=== PATIENT | female | born 1980 | race Caucasian/White ===

== ENCOUNTER 2018-10-15 22:34 | Emergency (ER) | payer MEDICAID ==
--- NOTE | 2018-10-15 22:47 | Emergency Department Record ---
History of Present Illness - General Chief Complaint: Chest Pain Stated Complaint: CHEST PAIN Time Seen by Provider: 10/15/18 22:35 Source: Patient Mode of Arrival: Ambulatory Limitations: No limitations - History of Present Illness Initial Comments: 38 yo female presents to ED for evaluation of shortness of breath and chest discomfort symptoms intermittently for the past several weeks. Patient reports that her symptoms worsen with exertion, reports [place] today she felt out of breath and reports pain that has been present for the past 7 hours. Patient does report a history of asthma, denies wheezing, coughing, fevers, or recent illness. Patient denies history of DVT or lower extremity swelling symptoms. MD Complaint: Chest pain Onset/Timin -: Week(s) Onset: During exertion Pain Location: Substernal Pain Radiation: None Severity: Moderate Quality: Aching Consistency: Constant Improves With: Nothing Worsens With: Exertion Treatments Prior to Arrival: None - Related Data On Oral Contraceptives: No Allergies Allergy/AdvReac Type Severity Reaction Status Date / Time metoclopramide HCl Allergy Unverified 09/13/18 14:01 [From Reglan] promethazine Allergy Unverified 09/13/18 14:01 Sulfa (Sulfonamide Allergy Unverified 09/13/18 14:01 Antibiotics) Review of Systems Constitutional: Denies: Chills, Fever, Malaise, Night sweats Eyes: Denies: Eye discharge, Eye pain ENT: Denies: Congestion, Ear pain, Epistaxis Respiratory: Denies: Cough, Dyspnea Cardiovascular: Reports: Chest pain, Dyspnea on exertion. Denies: Edema Endocrine: Denies: Fatigue, Heat or cold intolerance Gastrointestinal: Denies: Abdominal pain, Nausea, Vomiting Genitourinary: Denies: Incontinence, Retention Musculoskeletal: Denies: Arthralgia, Back pain Skin: Denies: Bruising, Change in color Neurological: Denies: Abnormal gait, Confusion, Headache, Seizure Psychiatric: Denies: Anxiety Hematological/Lymphatic: Denies: Anemia, Blood Clots Physical Exam - General General Appearance: Alert, Oriented x3, Cooperative, No acute distress Limitations: No limitations - Head Head exam: Atraumatic, Normocephalic, Normal inspection Head exam detail: negative: Abrasion, Contusion, Sánchez's sign, General tenderness, Hematoma, Laceration - Eye Eye exam: Normal appearance. negative: Conjunctival injection, Periorbital swelling, Periorbital tenderness, Scleral icterus - ENT Ear exam: negative: Auricular hematoma, Auricular trauma Nasal Exam: negative: Active bleeding, Discharge, Dried blood, Foreign body Mouth exam: negative: Drooling, Laceration, Muffled voice, Tongue elevation - Neck Neck exam: Normal inspection. negative: Meningismus, Tenderness - Respiratory Respiratory exam: Normal lung sounds bilaterally. negative: Rales, Respiratory distress, Rhonchi, Stridor - Cardiovascular Cardiovascular Exam: Normal rhythm, Normal heart sounds, Tachycardia - GI/Abdominal GI/Abdominal exam: Soft. negative: Rebound, Rigid, Tenderness - Rectal Rectal exam: Deferred - exam: Deferred - Extremities Extremities exam: Normal inspection. negative: Calf tenderness, Pedal edema, Tenderness - Back Back exam: Denies: CVA tenderness (R), CVA tenderness (L) - Neurological Neurological exam: Alert, Normal gait, Oriented X3 - Psychiatric Psychiatric exam: Normal affect, Normal mood - Skin Skin exam: Normal color. negative: Abrasion Type of lesion: negative: abrasion Course - Reevaluation(s) Reevaluation #1: 10/15/18 22:48 EKG: Sinus tachycardia 104 Normal axis, normal intervals No acute ST-T wave changes on examination. Reevaluation #2: 10/15/18 23:25 laboratory studies were reviewed, Hgb 6.7. Type and cross ordered. Labs are otherwise grossly unremarkable for an acute process. Reevaluation #3: 10/15/18 23:42 Hgb was confirmed to be 6.7 following repeat level. I did discuss transfusion with the patient, reports a history of being raised as Islam, declines transfusion at this time. Will discuss transfer for further evaluation. Reevaluation #4: 10/16/18 00:21 Following discussion with the patient, she is willing to be transferred for further evaluation. Reevaluation #5: 10/16/18 00:41 Case was discussed with Dr. Galvez, will accept patient for transfer and further evaluation. Medical Decision Making - Lab Data Result diagrams: 10/15/18 22:40 10/15/18 22:40 Disposition Disposition: Transfer Clinical Impression: Severe anemia Chest pain Qualifiers: Chest pain type: unspecified Qualified Code(s): R07.9 - Chest pain, unspecified Disposition: Acute Care Hospital Transfer Transfer To: [facility] Reason For Transfer: UGI Bleed Accepting Physician: Lenny Time Discussed w/Accepting Physician: 00:43 Condition: (2) Stable Forms: Patient Portal Access Time of Disposition: 23:26 Quality - Quality Measures Quality Measures: N/A - Blood Pressure Screening Does Patient Have Any of the Following: No Blood Pressure Classification: Normal BP Reading Systolic Measurement: 118 Diastolic Measurement: 66 Screening for High Blood Pressure: < Normal BP, F/U Not Required > [G8783] Pre-Hypertensive Follow-up Interventions: Referral to alternative/primary care provider.
[2018-10-15 22:53] LABS: BASO % 0.6 % (0-6); EOS % 7.6 % (0-6); HEMATOCRIT 24.3 % (35.0-47.0); LYMPH % 16.6 % (16-45); MEAN CELL VOLUME 67.5 fl (81-97); MEAN CORPUSCULAR HEMOGLOBIN 18.6 pg (27-33); MEAN CORPUSCULAR HGB CONC 27.6 g/dl (32-36); MEAN PLATELET VOLUME 10.4 fl (7.4-10.4); MONO % 6.2 % (0-9); PLATELET COUNT 490 K/uL (130-400); WHITE BLOOD COUNT W/O DIFF 11.5 K/uL (4.2-12.2)
[2018-10-15 23:06] LABS: BILIRUBIN,TOTAL < 0.20 mg/dL (0.2-1.0); BLOOD UREA NITROGEN 12 mg/dL (6-20); CREATININE 0.6 mg/dL (0.5-0.9); EST GLOMERULAR FILTRATION RATE > 60 mL/min; TOTAL PROTEIN 6.8 g/dL (6.6-8.7)
[2018-10-15 23:08] LABS: GLUCOSE,RANDOM 116 mg/dL (74-109)
[2018-10-15 23:11] LABS: ALB/GLOB RATIO 1.5 (1.1-1.8); ALBUMIN 4.1 g/dL (4.0-5.0); ALKALINE PHOSPHATASE 62 U/L (35-104); ALT/SGPT 18 U/L (<33); AST/SGOT 24 U/L (10.0-35.0)
[2018-10-15 23:48] LABS: ABO GROUP O; ANTIBODY SCREEN NEGATIVE (NEGATIVE); RH TYPE POSITIVE
[2018-10-16] MEDS ORDERED: FAMOTIDINE IV 20 MG/2 ML VIAL IVP ONE (00:43)
[2018-10-16] MEDS ORDERED: PANTOPRAZOLE SODIUM IV 40 MG VIAL IVP ONE (00:46)
[2018-10-16 07:05] LABS: HEMOGLOBIN 6.7 gm/dl (11.6-16.0)
== END 2018-10-16 01:54 | disposition short-term general hospital (02) ==
LOC: ER 22:34
DX: D64.9 Anemia, unspecified (principal); R07.2 Precordial pain; R06.02 Shortness of breath
CPT/HCPCS: 80053; 84484; 85025; 85379; 86850; 86900; 86901; 93005; 93010; 96374; 99285; C9113

== ENCOUNTER 2018-12-15 13:35 | Emergency (ER) | payer MEDICAID ==
--- NOTE | 2018-12-15 13:55 | Emergency Department Record ---
History of Present Illness - General Chief complaint: ENT Stated complaint: SORE THROAT Time Seen by Provider: 12/15/18 13:55 Source: Patient Mode of Arrival: Ambulatory Limitations: No limitations - History of Present Illness Initial comments: The patient is here due to having a ST for the last 4 days. She states she feels her throat is swollen and she has been very fatigued. There is no hx of cough, fever, CP, AP or dysuria. She does have a hx of anemia and would like it checked. MD complaint: Sore throat Onset/Timin -: Days(s) Location: Throat Severity: Mild Severity scale (1-10): 2 Quality: Aching Improves with: None Associated Symptoms: Sore throat - Related Data Home Medications Medication Instructions Recorded Confirmed Last Taken Cyclobenzaprine HCl [Flexeril] 5 mg PO TID 12/15/18 12/15/18 1 Day Ago ~12/14/18 Gabapentin [Neurontin] 100 mg PO 12/15/18 12/15/18 Pantoprazole Sodium [Protonix] 40 mg PO BID 12/15/18 12/15/18 12/15/18 Previous Rx's Medication Instructions Recorded Prednisone [Prednisone 20Mg] 40 mg PO DAILY #8 tab 12/15/18 Allergies Allergy/AdvReac Type Severity Reaction Status Date / Time metoclopramide HCl Allergy ALTERED Unverified 12/15/18 13:51 [From Reglan] MENTAL STATUS promethazine Allergy ALTERED Unverified 12/15/18 13:51 MENTAL STATUS Sulfa (Sulfonamide Allergy HIVES Unverified 12/15/18 13:51 Antibiotics) Travel Screening - Travel/Exposure Within Last 30 Days Have you traveled within the last 30 days?: No - Travel Symptoms Symptom Screening: Joint & Muscle Aches, Weakness, Fatigue, Vomiting, Lack of Appetite Review of Systems Constitutional: Reports: Malaise. Denies: Chills, Fever Eyes: Denies: Eye discharge ENT: Reports: Throat pain. Denies: Congestion Respiratory: Denies: Cough, Dyspnea Past Medical History - SOCIAL HISTORY Smoking Status: Former smoker Alcohol Use: Occasional Alcohol Use Comment: daily Drug Use: None - RESPIRATORY Hx Respiratory Disorders: Yes Hx Asthma: Yes - CARDIOVASCULAR Hx Cardio Disorders: Yes Hx Hypotension: Yes - NEURO Hx Neuro Disorders: Yes Hx Headaches: Yes (hx of Migraines) - GI Hx GI Disorders: Yes Hx Reflux: Yes Hx Ulcer: Yes Comment:: Chronic Diarrhea - Hx Genitourinary Disorders: No - ENDOCRINE Hx Endocrine Disorders: No - MUSCULOSKELETAL Hx Musculoskeletal Disorders: Yes Hx Fibromyalgia: Yes - PSYCH Hx Psych Problems: Yes Hx Anxiety: Yes Hx Depression: Yes - HEMATOLOGY/ONCOLOGY Hx Hematology/Oncology Disorders: Yes Hx Anemia: Yes Family Medical History Any Significant Family History?: Yes Hx Cancer: Mother, Grandparents *Diabetes Comment: Uncle Hx Heart Disease: Grandparents Hx Resp Disorders: Father Physical Exam - General General Appearance: Alert, Oriented x3, Cooperative, No acute distress - Head Head exam: Atraumatic, Normocephalic, Normal inspection - Eye Eye exam: Normal appearance, PERRL, EOMI - ENT ENT exam: TM's normal bilaterally Throat exam: Tonsillar erythema. negative: Normal inspection, Tonsillomegaly, Tonsillar exudate - Neck Neck exam: Normal inspection, Full ROM. negative: Lymphadenopathy, Meningismus , Tenderness - Respiratory Respiratory exam: Normal lung sounds bilaterally. negative: Respiratory distress - Cardiovascular Cardiovascular Exam: Regular rate, Normal rhythm, Normal heart sounds - GI/Abdominal GI/Abdominal exam: Soft, Normal bowel sounds. negative: Rebound, Rigid, Tenderness - Extremities Extremities exam: Normal inspection, Full ROM, Normal capillary refill. negative: Tenderness - Neurological Neurological exam: Alert, Normal gait. negative: Abnormal gait, Motor sensory deficit - Skin Skin exam: negative: Rash Course Vital Signs 12/15/18 13:38 Temperature 98.4 F Pulse Rate 112 H Respiratory 18 Rate Blood Pressure 149/108 Pulse Ox 94 L - Reevaluation(s) Reevaluation #1: The patient is doing very well at this time. She is drinking well and just finished a 12 oz bottle of water. The patient denies any cough, nausea, vomiting or SOB. I did explain the lab tests were neg for Strep and [place] and anemia but did demonstrate elevated liver enzymes. She is to see her PCP next week for recheck and have the elevated liver tests evaluated further. 12/15/18 14:49 Medical Decision Making - Data Complexity MDM Data: Labs Ordered and/or Reviewed - Lab Data Result diagrams: 12/15/18 14:00 12/15/18 14:00 Disposition Disposition: Discharge Clinical Impression: Pharyngitis Qualifiers: Pharyngitis/tonsillitis etiology: other specified organisms Qualified Code(s): J02.8 - Acute pharyngitis due to other specified organisms Disposition: Home, Self-Care Condition: (2) Stable Instructions: Viral Syndrome (ED) Additional Instructions: Please continue your regular medicines and add the short course of Prednisone for 4 days. Please see your family doctor next week for recheck and to have your elevated liver enzymes evaluated further. Return to the ER for any worsening symptoms, pain, fever, or vomiting. Prescriptions: Prednisone [Prednisone 20Mg] 40 mg PO DAILY #8 tab Forms: Patient Portal Access Time of Disposition: 14:55 Quality - Quality Measures Quality Measures: N/A - Blood Pressure Screening View Details: Yes Does Patient Have Any of the Following: No Blood Pressure Classification: Hypertensive Reading Systolic Measurement: 149 Diastolic Measurement: 108 Screening for High Blood Pressure: < First Hypertensive BP, F/U Documented > [ G8950] First Hypertensive Follow-up Interventions: Referral to alternative/primary care provider.
[2018-12-15 14:19] LABS: HEMATOCRIT 39.8 % (35.0-47.0); MEAN CELL VOLUME 80.1 fl (81-97); MEAN CORPUSCULAR HEMOGLOBIN 24.1 pg (27-33); MEAN CORPUSCULAR HGB CONC 30.2 g/dl (32-36); MEAN PLATELET VOLUME 9.7 fl (7.4-10.4); PLATELET COUNT 179 K/uL (130-400); RED BLOOD COUNT 4.97 M/uL (3.80-5.40); RED CELL DISTRIBUTION WIDTH 24.7 % (11.5-14.5)
[2018-12-15 14:29] LABS: ANISOCYTOSIS 1+; PLATELET ESTIMATE NORMAL (NORMAL)
[2018-12-15 14:30] LABS: MONOSCREEN NEGATIVE (NEGATIVE)
[2018-12-15 14:33] LABS: BLOOD UREA NITROGEN 15 mg/dL (6-20); CREATININE 0.4 mg/dL (0.5-0.9); EST GLOMERULAR FILTRATION RATE > 60 mL/min
[2018-12-15 14:34] LABS: TOTAL PROTEIN 8.6 g/dL (6.6-8.7)
[2018-12-15 14:36] LABS: GLUCOSE,RANDOM 108 mg/dL (74-109)
[2018-12-15 14:39] LABS: ALB/GLOB RATIO 1.2 (1.1-1.8); ALBUMIN 4.6 g/dL (4.0-5.0); ALKALINE PHOSPHATASE 89 U/L (45-87); ALT/SGPT 46 U/L (<33); AST/SGOT 135 U/L (10.0-35.0)
== END 2018-12-15 15:05 | disposition home or self-care (01) ==
LOC: ER 13:35
DX: J02.8 Acute pharyngitis due to other specified organisms (principal); R94.5 Abnormal results of liver function studies; R53.83 Other fatigue; Z87.891 Personal history of nicotine dependence
CPT/HCPCS: 80053; 84703; 85027; 86308; 87880; 99283

== ENCOUNTER 2019-04-20 01:39 | Emergency (ER) | payer MEDICAID ==
--- NOTE | 2019-04-20 01:54 | Emergency Department Record ---
History of Present Illness - General Chief complaint: Poison tavo/oak/sumac exposure Stated complaint: POISON TAVO/FALL Time Seen by Provider: 04/20/19 01:48 Source: Patient Mode of Arrival: Ambulatory Limitations: No limitations - History of Present Illness Initial comments: 38 yo female presents with poison tavo rash for about 4 days. She is concerned that it is not better after 3 days of steroids. She has small areas of the rash on the arms, legs, chest and abdomen. No fever or pus. At 1am she called her PCP on-call number and was instructed to be evaluated in the ED. Additionally she tripped over her dog on Monday. She did not have an LOC. She did hit her left cheek. That area is chemicals distiller with mild swelling. No double vision. She has a left knee abrasion but no pain with weight bearing. complaint: Rash -: Days(s) Location: Generalized Severity: Mild Quality: Other (itches) Consistency: Constant Improves with: Other Worsens with: Other Context: Other (poison tavo) Associated symptoms: Itching Treatments Prior to Arrival: Corticosteroid - Related Data Home Medications Medication Instructions Recorded Confirmed Last Taken Cider Vinegar [Apple Cider Vinegar] 300 mg PO DAILY 04/20/19 04/20/19 Unknown Ferrous Sulfate [Iron] 325 mg PO DAILY 04/20/19 04/20/19 Unknown Gabapentin [Neurontin] 200 mg PO QHS 04/20/19 04/20/19 04/19/19 Milk Thistle 150 mg PO DAILY 04/20/19 04/20/19 Unknown Previous Rx's Medication Instructions Recorded Prednisone [Prednisone 10Mg] 10 mg PO DAILY #10 tab 04/20/19 Allergies Allergy/AdvReac Type Severity Reaction Status Date / Time metoclopramide HCl Allergy ALTERED Verified 04/20/19 02:41 [From Reglan] MENTAL STATUS promethazine Allergy ALTERED Verified 04/20/19 02:41 MENTAL STATUS Sulfa (Sulfonamide Allergy HIVES Verified 04/20/19 02:41 Antibiotics) Review of Systems Constitutional: Denies: Chills, Fever, Malaise, Weakness Eyes: Denies: Eye discharge, Eye pain, Photophobia, Vision change ENT: Denies: Congestion, Dental pain, Ear pain, Throat pain Respiratory: Denies: Cough, Dyspnea Cardiovascular: Denies: Chest pain, Syncope Endocrine: Denies: Fatigue Gastrointestinal: Denies: Abdominal pain, Diarrhea, Nausea, Vomiting Genitourinary: Denies: Dysuria, Urgency Musculoskeletal: Denies: Arthralgia, Back pain, Joint swelling, Myalgia Skin: Reports: As per HPI, Bruising, Rash Neurological: Denies: Confusion, Headache, Numbness, Weakness Psychiatric: Denies: Anxiety Hematological/Lymphatic: Denies: Easy bleeding, Easy bruising Past Medical History - SOCIAL HISTORY Smoking Status: Former smoker Alcohol Use Comment: daily Drug Use: None - RESPIRATORY Hx Respiratory Disorders: Yes Hx Asthma: Yes - CARDIOVASCULAR Hx Cardio Disorders: Yes Hx Hypotension: Yes - NEURO Hx Neuro Disorders: Yes Hx Headaches: Yes (hx of Migraines) - GI Hx GI Disorders: Yes Hx Reflux: Yes Hx Ulcer: Yes Comment:: Chronic Diarrhea - Hx Genitourinary Disorders: No - ENDOCRINE Hx Endocrine Disorders: No - MUSCULOSKELETAL Hx Musculoskeletal Disorders: Yes Hx Fibromyalgia: Yes - PSYCH Hx Psych Problems: Yes Hx Anxiety: Yes Hx Depression: Yes - HEMATOLOGY/ONCOLOGY Hx Hematology/Oncology Disorders: Yes Hx Anemia: Yes Family Medical History Hx Cancer: Mother, Grandparents *Diabetes Comment: Uncle Hx Heart Disease: Grandparents Hx Resp Disorders: Father Physical Exam - General General Appearance: Alert, Oriented x3, Cooperative, No acute distress Limitations: No limitations - Head Head exam: negative: Atraumatic Head exam detail: Abrasion, Contusion Image of Face/Head: 1 - mild swelling and tenderness, EOMI, no hyphema - Eye Eye exam: PERRL, Periorbital swelling, Periorbital tenderness. negative: Conjunctival injection - ENT ENT exam: Normal exam, Mucous membranes moist Ear exam: Normal external inspection Nasal Exam: Normal inspection Mouth exam: Normal external inspection Teeth exam: Normal inspection Throat exam: Normal inspection - Neck Neck exam: Normal inspection, Full ROM. negative: Lymphadenopathy - Respiratory Respiratory exam: Normal lung sounds bilaterally - Cardiovascular Cardiovascular Exam: Regular rate, Normal rhythm, Normal heart sounds - GI/Abdominal GI/Abdominal exam: Soft. negative: Tenderness - Rectal Rectal exam: Deferred - Extremities Extremities exam: Full ROM. negative: Normal inspection, Joint swelling, Tenderness Image of Full Body: 1 - abrasion, full ROM, no pain with full weight - Back Back exam: Reports: Normal inspection - Neurological Neurological exam: Alert, Oriented X3 - Psychiatric Psychiatric exam: Normal affect, Normal mood. negative: Agitated, Anxious - Skin Skin exam: Erythema, Rash. negative: Warm Type of lesion: abrasion, Rash. negative: Abscess Distribution of rash: Neck, Thorax, RUE, LUE Description of rash: Erythematous, Papular, Other (scattered patches of raises, papular scaling rash consistent with contact dermatitis, no signs of secondary infection) Course Vital Signs 04/20/19 01:44 Temperature 98.5 F Pulse Rate [ 115 H Pulse Ox Probe] Respiratory 20 Rate Blood Pressure 148/105 [Left Arm] Pulse Ox 99 - Reevaluation(s) Reevaluation #1: The patient has mild non complicated contact dermatitis without any signs of secondary infection She has only two days of steroid left. She will be placed on a tapering dose to extend it Facial CT ordered due to the trauma 04/20/19 01:56 04/20/19 02:[address] is negative for acute injury Disposition Disposition: Discharge Clinical Impression: Contact dermatitis Qualifiers: Contact dermatitis type: irritant Contact dermatitis trigger: non-food plants Qualified Code(s): L24.7 - Irritant contact dermatitis due to plants, except food Contusion of face Qualifiers: Encounter type: initial encounter Qualified Code(s): S00.83XA - Contusion of other part of head, initial encounter Disposition: Home, Self-Care Condition: (1) Good Instructions: Poison Tavo (ED) Additional Instructions: Call your doctor for the next available follow up appointment Review this ER visit and the tests performed with your family doctor Return to the ER for a recheck if worse, any new concerns or questions Take the prescriptions provided as directed Prescriptions: Prednisone [Prednisone 10Mg] 10 mg PO DAILY #10 tab Forms: Patient Portal Access Time of Disposition: 02:59 Quality - Quality Measures Quality Measures: N/A, Blunt Head Trauma (>2yr) - Blunt Head Trauma - Adult Quality Measure: Measure #415: Utilization of CT for Minor Blunt Head Trauma ICD10 Codes Entered: Yes Was CT ordered: No Does Patient Have Any of the Following: No Exclusions Patient Presented Within 24 Hours of Injury: No Kayce Score: Please complete [place] Coma Scale above Utilization of CT for Minor Blunt Head Trauma: Not Eligible For Measure Additional Inclusion Criteria: More than 24hrs (OR) GCS not 15 (OR) CT not ordered. Not Eligible Reason: CT Not Ordered, Injury Greater Than 24 Hours Ago - Blood Pressure Screening Does Patient Have Any of the Following: No Blood Pressure Classification: Hypertensive Reading Systolic Measurement: 148 Diastolic Measurement: 105 Screening for High Blood Pressure: < Pre-Hypertensive BP, F/U Documented > [G8950] Pre-Hypertensive Follow-up Interventions: Referral to alternative/primary care provider.
--- NOTE | 2019-04-22 21:52 | CT SCAN REPORT ---
EXAM: CT SCAN MAXILLOFACIAL WO CONTRAST HISTORY: 38-YEAR-OLD FEMALE WITH FALL. LEFT ORBITAL SWELLING. TECHNIQUE: Routine CT images of the maxillofacial bones were obtained without contrast. FINDINGS: No facial bone fracture is seen. Orbital contents are unremarkable. Paranasal sinuses and mastoid air cells are essentially clear. The parotid and submandibular glands appear unremarkable. No prominent soft tissue swelling. IMPRESSION: NO FACIAL BONE FRACTURE IS SEEN. JOB NUMBER: [id number] [facility]
== END 2019-04-20 03:12 | disposition home or self-care (01) ==
LOC: ER 01:39
DX: S00.83XA Contusion of other part of head, initial encounter (principal); W18.31XA Fall on same level due to stepping on an object, initial encounter; Y93.K1 Activity, walking an animal; Y92.89 Other specified places as the place of occurrence of the external cause; L25.5 Unspecified contact dermatitis due to plants, except food; Z87.891 Personal history of nicotine dependence
CPT/HCPCS: 70486; 99283

== ENCOUNTER 2019-04-23 05:01 | Emergency (ER) | payer MEDICAID ==
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
[2019-04-23 05:47] LABS: ABSOLUTE NEUTROPHIL COUNT 8.05; BASO % 0.2 % (0-6); GRAN % 67.7 % (47-80); HEMATOCRIT 41.2 % (35.0-47.0); HEMOGLOBIN 13.6 gm/dl (11.6-16.0); LYMPH % 24.2 % (16-45); MEAN CELL VOLUME 93.8 fl (81-97); MEAN PLATELET VOLUME 10.4 fl (7.4-10.4); MONO % 6.9 % (0-9); PLATELET COUNT 394 K/uL (130-400); RED BLOOD COUNT 4.39 M/uL (3.80-5.40); RED CELL DISTRIBUTION WIDTH 14.9 % (11.5-14.5); WHITE BLOOD COUNT W/O DIFF 11.9 K/uL (4.2-12.2)
[2019-04-23 05:53] LABS: AMPHETAMINE SCREEN URINE NOT DETECTED; BARBITURATE SCREEN URINE NOT DETECTED; BENZODIAZEPINE SCREEN URINE NOT DETECTED; COCAINE SCREEN URINE NOT DETECTED; METHADONE SCREEN URINE NOT DETECTED; METHAMPHETAMINE SCREEN NOT DETECTED; OPIATE SCREEN URINE NOT DETECTED; OXYCODONE SCREEN URINE NOT DETECTED; PHENCYCLIDINE SCREEN URINE NOT DETECTED; PROPOXYPHENE SCREEN URINE NOT DETECTED; THC SCREEN URINE DETECTED; TRICYCLIC ANTIDEPRESSANT SCRN DETECTED
[2019-04-23 05:55] LABS: BLOOD UREA NITROGEN 11 mg/dL (6-20); CREATININE 0.5 mg/dL (0.5-0.9); EST GLOMERULAR FILTRATION RATE > 60 mL/min
[2019-04-23 05:56] LABS: TOTAL PROTEIN 7.2 g/dL (6.6-8.7)
[2019-04-23 05:57] LABS: ALCOHOL 0.291 g/dL (0-0.010)
[2019-04-23 05:58] LABS: GLUCOSE,RANDOM 131 mg/dL (74-109)
[2019-04-23 06:00] LABS: ALB/GLOB RATIO 1.3 (1.1-1.8); ALT/SGPT 163 U/L (<33); AST/SGOT 165 U/L (10.0-35.0)
[2019-04-23 06:01] LABS: ALKALINE PHOSPHATASE 153 U/L (35-104)
[2019-04-23 06:02] LABS: ACETAMINOPHEN < 5.0 ug/mL (10.0-30.0); SALICYLATE 1.1 mg/dL (2.8-20)
[2019-04-23 06:11] LABS: THYROID STIMULATING HORMONE 1.56 uIU/mL (0.270-4.20)
[2019-04-23] MEDS ORDERED: OLANZAPINE 10 MG VIAL IM ONE (06:51)
--- NOTE | 2019-04-23 10:42 | Emergency Department Record ---
History of Present Illness - General Chief Complaint: Laceration(s) Stated Complaint: LACERATION Time Seen by Provider: 04/23/19 05:12 Source: Patient, EMS Mode of Arrival: EMS Limitations: No limitations - History of Present Illness Onset/Timin -: Hour(s) Extremity Location: Left: Wrist Place: Home Context: Accidental Treatments Prior to Arrival: Bandage - Kayce Coma Scale Eye Response: (4) Open spontaneously Motor Response: (6) Obeys commands Verbal Response: (5) Oriented Kayce Total: 15 - Related Data Hx Tetanus Toxoid Vaccination: Yes Previous Rx's Medication Instructions Recorded Prednisone [Prednisone 10Mg] 10 mg PO DAILY #10 tab 04/20/19 Gabapentin [Neurontin] 100 mg PO BID #9 capsule 04/23/19 Venlafaxine HCl [Effexor Xr] 150 mg PO DAILY #3 cap.er 04/23/19 Allergies Allergy/AdvReac Type Severity Reaction Status Date / Time metoclopramide HCl Allergy ALTERED Verified 04/20/19 02:41 [From Reglan] MENTAL STATUS promethazine Allergy ALTERED Verified 04/20/19 02:41 MENTAL STATUS Sulfa (Sulfonamide Allergy HIVES Verified 04/20/19 02:41 Antibiotics) Travel Screening - Travel/Exposure Within Last 30 Days Have you traveled within the last 30 days?: No - Travel Symptoms Symptom Screening: None Past Medical History - SOCIAL HISTORY Smoking Status: Former smoker Alcohol Use: Heavy Drug Use: None - RESPIRATORY Hx Respiratory Disorders: Yes Hx Asthma: Yes - CARDIOVASCULAR Hx Cardio Disorders: Yes Hx Hypotension: Yes - NEURO Hx Neuro Disorders: Yes Hx Headaches: Yes (hx of Migraines) - GI Hx GI Disorders: Yes Hx Reflux: Yes Hx Ulcer: Yes Comment:: Chronic Diarrhea - Hx Genitourinary Disorders: No - ENDOCRINE Hx Endocrine Disorders: No - MUSCULOSKELETAL Hx Musculoskeletal Disorders: Yes Hx Fibromyalgia: Yes - PSYCH Hx Psych Problems: Yes Hx Anxiety: Yes Hx Depression: Yes - HEMATOLOGY/ONCOLOGY Hx Hematology/Oncology Disorders: Yes Hx Anemia: Yes Family Medical History Any Significant Family History?: Yes Hx Cancer: Mother, Grandparents *Diabetes Comment: Uncle Hx Heart Disease: Grandparents Hx Resp Disorders: Father Physical Exam - General Limitations: No limitations Course Vital Signs 04/23/19 04/23/19 05:02 08:09 Temperature 98.6 F Pulse Rate 99 H Pulse Rate [ 92 H Pulse Ox Probe] Respiratory 22 20 Rate Blood Pressure 106/78 Blood Pressure 108/67 [Left Arm] Pulse Ox 98 99 - Reevaluation(s) Reevaluation #1: The patient is resting comfortably at this time and has normal vital signs. 04/23/19 9:00 Reevaluation #2: The patient is still sleeping and has normal vitals. She has had no issues since 7am when she received the Zyprexa. 04/23/19 10:41 Reevaluation #3: The patient is doing well at this time. She is calm and cooperative presently. I did try to discuss the recent events which occurred last evening relating to the patient trying to hurt herself but she will not talk with me. She appears to have tried to cut herself in the past but will not answer me when I ask is she still thinking of hurting herself. The patient did let me examine her L wrist lac. It appears very superficial and is 3 cm long. The L hand is NVI with normal tendon and nerve function. I did cleanse the lac with betadine and sterile saline. Due to not being sure when the laceration occurred I did not feel that suturing was in the patient's best interests and did steri-strip the superficial lac. 04/23/19 12:05 Reevaluation #4: The patient is doing very well at this time. She has a mild GONZALEZ but no nausea, tremors, anxiety or pain. I did discuss her alcohol use and mildly elevated liver enzymes and the need to cut back on her intake and see her PCP for further help with her alcohol use. her vitals are normal and she has been accepted to [facility] for further evaluation. 04/23/19 13:56 Medical Decision Making - Data Complexity MDM Data: Labs Ordered and/or Reviewed - Lab Data Result diagrams: 04/23/19 05:35 04/23/19 05:35 Lab Results 04/23/19 04/23/19 04/23/19 Range/Units 05:35 05:35 Unknown WBC 11.9 (4.2-12.2) K/uL RBC 4.39 (3.80-5.40) M/uL Hgb 13.6 (11.6-16.0) gm/dl Hct 41.2 (35.0-47.0) % MCV 93.8 (81-97) fl MCH 31.0 (27-33) pg MCHC 33.0 (32-36) g/dl RDW 14.9 H (11.5-14.5) % Plt Count 394 (130-400) K/uL MPV 10.4 (7.4-10.4) fl Gran % 67.7 (47-80) % Lymphocytes % 24.2 (16-45) % Monocytes % 6.9 (0-9) % Eosinophils % 1.0 (0-6) % Basophils % 0.2 (0-6) % Absolute Neutrophils 8.05 Sodium 140 (136-145) mmol/L Potassium 3.8 (3.4-4.5) mmol/L Chloride 105 (98-107) mmol/L Carbon Dioxide 23.0 (22-29) mmol/L Anion Gap 12.0 (7-16) BUN 11 (6-20) mg/dL Creatinine 0.5 (0.5-0.9) mg/dL Estimated GFR > 60 mL/min Random Glucose 131 H (74-109) mg/dL Calcium 8.2 L (8.6-10.0) mg/dL Total Bilirubin 0.20 (0.2-1.0) mg/dL AST 165 H (10.0-35.0) U/L ALT 163 H (<33) U/L Alkaline Phosphatase 153 H (35-104) U/L Total Protein 7.2 (6.6-8.7) g/dL Albumin 4.0 (4.0-5.0) g/dL Globulin 3.2 (1.4-4.8) gm/dL Albumin/Globulin Ratio 1.3 (1.1-1.8) TSH 1.56 (0.270-4.20) uIU/mL Urine HCG, Qual (NEGATIVE) Salicylates 1.1 L (2.8-20) mg/dL Urine Opiates Screen Not detected Ur Oxycodone Screen Not detected Urine Methadone Screen Not detected Ur Propoxyphene Screen Not detected Acetaminophen < 5.0 L (10.0-30.0) ug/mL Ur Barbituates Screen Not detected Ur Tricyclics Screen Detected Ur Phencyclidine Scrn Not detected Ur Amphetamine Screen Not detected U Methamphetamines Scrn Not detected U Benzodiazepines Scrn Not detected Urine Cocaine Screen Not detected Urine Cannabis Screen Detected Ethyl Alcohol 0.291 H (0-0.010) g/dL 04/23/19 Range/Units Unknown WBC (4.2-12.2) K/uL RBC (3.80-5.40) M/uL Hgb (11.6-16.0) gm/dl Hct (35.0-47.0) % MCV (81-97) fl MCH (27-33) pg MCHC (32-36) g/dl RDW (11.5-14.5) % Plt Count (130-400) K/uL MPV (7.4-10.4) fl Gran % (47-80) % Lymphocytes % (16-45) % Monocytes % (0-9) % Eosinophils % (0-6) % Basophils % (0-6) % Absolute Neutrophils Sodium (136-145) mmol/L Potassium (3.4-4.5) mmol/L Chloride (98-107) mmol/L Carbon Dioxide (22-29) mmol/L Anion Gap (7-16) BUN (6-20) mg/dL Creatinine (0.5-0.9) mg/dL Estimated GFR mL/min Random Glucose (74-109) mg/dL Calcium (8.6-10.0) mg/dL Total Bilirubin (0.2-1.0) mg/dL AST (10.0-35.0) U/L ALT (<33) U/L Alkaline Phosphatase (35-104) U/L Total Protein (6.6-8.7) g/dL Albumin (4.0-5.0) g/dL Globulin (1.4-4.8) gm/dL Albumin/Globulin Ratio (1.1-1.8) TSH (0.270-4.20) uIU/mL Urine HCG, Qual Negative (NEGATIVE) Salicylates (2.8-20) mg/dL Urine Opiates Screen Ur Oxycodone Screen Urine Methadone Screen Ur Propoxyphene Screen Acetaminophen (10.0-30.0) ug/mL Ur Barbituates Screen Ur Tricyclics Screen Ur Phencyclidine Scrn Ur Amphetamine Screen U Methamphetamines Scrn U Benzodiazepines Scrn Urine Cocaine Screen Urine Cannabis Screen Ethyl Alcohol (0-0.010) g/dL Disposition Clinical Impression: Self-harm Laceration of wrist Qualifiers: Encounter type: initial encounter Laterality: left Qualified Code(s): S61.512A - Laceration without foreign body of left wrist, initial encounter Alcohol intoxication Qualifiers: Complication of substance-induced condition: uncomplicated Qualified Code(s): F10.920 - Alcohol use, unspecified with intoxication, uncomplicated Disposition: Psychiatric Hospital Transfer To: [facility] Reason For Transfer: Psychiatry Accepting Physician: Dr. Beltrán Time Discussed w/Accepting Physician: 13:58 Additional Instructions: Please keep the wrist lac dry for 2 days and watch for signs of infection. Please decrease your alcohol intake and see your family doctor due to your el evated liver enzymes. Return to the ER for any signs of infection in your arm. Prescriptions: Venlafaxine HCl [Effexor Xr] 150 mg PO DAILY #3 cap.er Gabapentin [Neurontin] 100 mg PO BID #9 capsule Forms: Patient Portal Access Quality - Quality Measures Quality Measures: Blunt Head Trauma (>2yr) - Blunt Head Trauma - Adult Quality Measure: Measure #415: Utilization of CT for Minor Blunt Head Trauma ICD10 Codes Entered: Yes View Details: Yes Was CT ordered: No [place] Score: Please complete Kayce Coma Scale above Utilization of CT for Minor Blunt Head Trauma: Not Eligible For Measure Additional Inclusion Criteria: More than 24hrs (OR) GCS not 15 (OR) CT not ordered. Not Eligible Reason: CT Not Ordered - Blood Pressure Screening View Details: Yes Does Patient Have Any of the Following: No Blood Pressure Classification: Normal BP Reading Systolic Measurement: 106 Diastolic Measurement: 78 Screening for High Blood Pressure: < Normal BP, F/U Not Required > [G8783]
[2019-04-23] MEDS ORDERED: ACETAMINOPHEN 325 MG TAB PO ONE (11:41)
[2019-04-23] MEDS ORDERED: PREDNISONE 20 MG TAB PO ONE (11:42)
[2019-04-23] MEDS ORDERED: VENLAFAXINE ER 75 MG CAPSULE PO SCH (11:45)
[2019-04-23] MEDS ORDERED: GABAPENTIN 100 MG CAPSULE PO SCH (11:45)
[2019-04-23] MEDS ORDERED: DIPHENHYDRAMINE HCL 25 MG CAPSULE PO ONE (13:33)
[2019-04-23] MEDS ORDERED: LORAZEPAM 0.5 MG TABLET PO ONE (15:28)
== END 2019-04-23 16:19 ==
LOC: ER 05:01
DX: S61.512A Laceration without foreign body of left wrist, initial encounter (principal); F10.920 Alcohol use, unspecified with intoxication, uncomplicated; X78.9XXA Intentional self-harm by unspecified sharp object, initial encounter
CPT/HCPCS: 99285 ×2; 96372; 85025; 80053; 84443; 81025; 80305; G0480 ×3; J7512; 80320; 80329